=== PATIENT | female | born 1985 | race Caucasian/White ===

== ENCOUNTER 2017-04-25 16:09 | Outpatient (CLI) | payer OTHER ==
[2017-04-25 19:38] LABS: HCT - HEMATOCRIT 36.1 % (37.0-47.0); HGB - HEMOGLOBIN 12.7 g/dL (12.0-16.0); MEAN CORPUSCULAR HEMOGLOBIN 34.2 pg (27.0-31.0); MEAN CORPUSCULAR HGB CONC 35.2 g/dL (32.0-36.0); MEAN CORPUSCULAR VOLUME 97.3 fL (81.0-99.0); MEAN PLATELET VOLUME 8.9 fL (7.9-10.8); RED BLOOD COUNT 3.71 10^6/uL (4.20-5.40); RED CELL DISTRIBUTION WIDTH 13.5 % (12.0-15.0); WHITE BLOOD COUNT 6.8 x10^3/uL (4.8-10.8)
== END 2017-04-25 16:10 | disposition home or self-care (01) ==
LOC: LAB.N 16:09
PROVIDERS: ATTEND Registered Nurse
DX: Z36 Encounter for antenatal screening of mother (principal)
CPT/HCPCS: 36415; 82950; 86850; 87086

== ENCOUNTER 2017-07-04 11:15 | Outpatient (CLI) | payer OTHER | END 2017-07-04 11:16 | disposition home or self-care (01) | LOC: LAB.R 11:15 | PROVIDERS: ATTEND Registered Nurse | DX: Z34.83 Encounter for supervision of other normal pregnancy, third trimester (principal) | CPT/HCPCS: 87077; 87081 ==

== ENCOUNTER 2017-07-07 03:20 | Observation (INO) | payer OTHER ==
[2017-07-07] MEDS ORDERED: MORPHINE 10 MG/ML VIAL IM ONE (04:11)
[2017-07-07] MEDS ORDERED: PROMETHAZINE INJ 25 MG in SODIUM CHLORIDE 0.9% 50 ML IV PRN (04:23)
[2017-07-07] MEDS ORDERED: SODIUM CHLORIDE FLUSH 0.9% 10 ML SYRINGE IVP PRN (04:23)
[2017-07-07] MEDS ORDERED: LACTATED RINGERS 1,000 ML IV ONE ×3 (04:23→12:58)
[2017-07-07] MEDS ORDERED: SODIUM CHLORIDE FLUSH 0.9% 10 ML SYRINGE IVP ONE (04:31)
--- NOTE | 2017-07-07 04:31 | HISTORY & PHYSICAL EXAMINATION ---
Admit History - Instructions [place]: -Left hand click circles element as positive or present. -Right hand click slashes element as negative or not present. - Visit Reason Visit Reason: Contractions - : 2 Parity: 1 Premature: 0 Ectopic: 0 : 0 Care: positive: FEMI MURPHY-Laura (transfer of care @ 25 weeks' gestation for CNM care) Risk/History: positive: None Complications This : positive: Other (GBS positive on rectal- vaginal screening @ 36 weeks; Rh negative, received Rhogam @ 28 weeks' gestation , no antepartum bleeding) Smoking Status: Never smoker - Mother's Labs Mother's Blood Type: positive: O Mother's RH: positive: Negative GBS: positive: Group B Strep Positive Rubella Status: positive: Immune - Other Maternal History Other Maternal History: History of inpatient admission for treatment of anorexia; history of depression & anxiety; currently stable w/o medication Meds/Allgy - Home Medications Home Medications: Ambulatory Orders Medication Instructions Recorded Confirmed Pnv No.122/Iron/Folic Acid 1 tab PO DAILY 07/07/17 07/07/17 [ Multi Tablet] - Allergies Allergies/Adverse Reactions: Allergies Allergy/AdvReac Type Severity Reaction Status Date / Time No Known Drug Allergies Allergy Verified 07/07/17 04:28 Physical - Abdominal Exam Vital Signs: Temp Pulse Resp BP Pulse Ox 36.7 C 64 16 124/81 H 99 07/07/17 03:40 07/07/17 03:40 07/07/17 03:40 07/07/17 03:40 07/07/17 03:40 Contraction Frequency (min/apart): 5-7 Contraction Intensity: positive: Mild to moderate Uterine Resting Tone: positive: Soft - Monitoring Heart Rate Baseline: 140 Strip Review: positive: Category I - Presentation Presentation: positive: Vertex - Vaginal Exam Membranes: positive: Membranes intact Dilation (in cm): 2 Effacement (%): 75 Station: positive: -1 Cervical Position: positive: Midposition (medium consistency) - Speculum Exam Speculum Exam Performed: positive: No - Other Notes Labor Progress Note/Additional Text: Monserrat presents w/ a complaint of onset of uterine contractions around 1800 2016. She reports that her contractions were initially very mild & that they were infrequent. When she went to bed, she found she was unable to sleep because of discomfort she was having in her lower back w/ some of the contractions. She called for instruction @ 0100. She then took a bath w/ great relief over the course of an hour but called again at 0215, reporting that she was still having discomfort. At that point, she thought she might be able to rest, but she found that she could not. She called again around 0330, requesting to be evaluated because of ongoing intermittent back discomfort. She denies LOF/VB. She reports good FM. She presented to [facility] in good spirits, having driven herself to the hospital for evaluation. She is having uterine contractions q5-7 minutes that palpate mild to moderate intensity. She reports that she had difficulty drinking consistently throughout the day & that she has limited her oral intake generally because she has been nauseated & has been afraid of vomiting. Her cervical status is unchanged from her exam on 2016. ROS: GEN: +fatigue, no fever, no chills HEENT: mild [place], no vision changes CARDIAC: no CP, no palpitations LUNGS: no dyspnea, no wheezing, no cough GI: +nausea, no vomiting, no diarrhea : +urinary frequency, no dysuria, no change in vaginal d/c OB: +FM, +uterine contractions, no LOF, no vaginal bleeding MS: +lumbar back pain, intermittent, 6/10, FROM, no joint pain NEURO: no numbness, weakness, tingling SKIN: no pruritus, no lesion PSYCH: +anxiety, no depression PE: GEN: AAOx3, NAD WA gravid female HEENT: grossly normocephalic, atraumatic, w/o corrective lenses CARDIAC: RRR nls1s2, no murmur LUNGS: CTA b/l t/o ABD: gravid, NT, lie longitudinal, presentation cephalic, position LOP, EFW 7.5# EFM: BL 140bpm +accels, no decels, mod variability TOCO: UCs q5-7 min x 80 seconds, palpably mild to moderate SVE: 2/75/-1, midposition, medium consistency, per RN MS: FROM t/o, no erythema, no edema, negative Oralia's b/l NEURO: no focal deficit SKIN: no lesion PSYCH: mild anxiety Plan for Labor - Plan For Labor : therapeutic rest Plan for Labor: Monserrat presents w/ occiput posterior positioning & prodromal uterine contractions and admits that she is likely dehydrated secondary to limited intake as a result of nausea t/o the day. She is uncomfortable & has not slept >24 hours. She has had no cervical change despite uterine contractions that have been bothersome to her for 10 hours. She has an intact bag of water & is GBS positive w/o allergies. Plan: 1. reviewed clinical scenario & probable etiology of uterine contractions & lumbar discomfort 2. reviewed all options for management 3. PARQ therapeutic rest, which pt desires, will administer 10mg morphine sulfate IM x1 4. promethazine 25mg IVPB for antiemetic therapy 5. Insert IV & administer 1L bolus of LR, followed by maintenance fluids @ 125mL /hr 6. regular diet as pt desires 7. reviewed optimal positioning, reviewed physiology of normal labor & pathophysiology of prodromal labor 8. encouraged maternal rest 9. will admit to observation for therapeutic rest & reassess when pt awakens 10. Reviewed plan of care with patient & RN @ bedside; both in agreement, without concerns
[2017-07-07] MEDS ORDERED: LACTATED RINGERS 1,000 ML IV SCH (05:00)
[2017-07-07] MEDS ORDERED: PROMETHAZINE 25 MG/1 ML VIAL ONE (06:03)
[2017-07-07] MEDS ORDERED: SODIUM CHLORIDE 0.9% MINIBAG 100 ML IV ONE (06:03)
[2017-07-07 06:35] VITALS: BP 122/78
--- NOTE | 2017-07-07 13:01 | PROVIDER PROGRESS NOTE ---
Subjective - Prog Note Date Prog Note Date: 07/07/17 Prog Note Time: 13:00 - Subjective Pt reports feeling: Improved Subjective: Monserrat still c/o intermittent back pain. States that she was able to sleep for 6+ hours & tolerated her meal, after which she had some mild nausea but no emesis. She reports that she has discomfort w/ her uterine contractions but that it is improved vs. earlier today. She feels well-rested. Her plans to come and get her. Current Medications - Current Medications Current Medications: s/p 25mg promethazine IVPB s/p 1L LR IV s/p10mg morphine sulfate IM Objective - Vital Signs/Intake & Output Vital Signs: Vital Signs x48h Pulse Resp BP Pulse Ox 07/07/17 06:00 54 L 16 122/78 98 Intake & Output: urinated x1 s/p bolus of 1L & 750mL infusion - Objective General Appearance: positive: No acute distress, Alert Eyes Bilateral: positive: Normal inspection, PERRL, EOMI ENT: positive: ENT inspection nml Respiratory: positive: Chest non-tender, No respiratory distress, Breath sounds nml Cardiovascular: positive: Regular rate & rhythm, No murmur Abdomen: positive: Non-tender, Other (gravid) Back: positive: Nml inspection Skin: positive: Color nml, No rash, Warm, Dry Extremities: positive: Non-tender, Full ROM, No pedal edema. negative: Calf tenderness, Oralia's sign/cords Neurologic/Psychiatric: positive: Oriented x3, CN's nml (2-12), Motor nml, Sensation nml, Mood/affect nml Comments/Other: EFM: BL 140bpm + accels, no decels, mod variability TOCO: UCs q7-10 min x60 seconds, palpably mild SVE: 2/75/-1, medium consistency, mid-position, position AIDAN Assessment/Plan - Problem List (1) Threatened labor, antepartum Impression: Prodromal labor @ 37 weeks 1 day GBS positive FHTs cat I Decreased contraction activity s/p hydration & therapeutic rest Improved pain s/p hydration & therapeutic rest Decreased nausea 1. Reviewed prodromal vs. active labor & s/sx labor 2. reviewed management of prodromal sx & encouraged increased rest as able: hydroxyzine pamoate 100mg po QHS PRN insomnia secondary to non-progressive uterine contractions, PARQ held, Rx will be e-rx'ed to [facility] in [place] 3. reviewed possible etiologies of nausea in 3rd trimester of , including GERD & management; promethazine 25mg po q 6 hrs PRN nausea, PARQ held & Rx will be e-rx'ed to [facility] in [place] 4. Bolus another liter of LR prior to d/c, encouraged increased po fluid intake 5. Reviewed optimal positioning, maternal positioning/activity 6. Reviewed emergency contact information, warning s/sx, labor s/sx, [facility] 7. d/c to home in care of ; pt to f/u for RTPN 07/11 as scheduled, earlier PRN--articulates full understanding & has no further questions/concerns.
== END 2017-07-07 14:57 | disposition home or self-care (01) ==
LOC: WFO 03:20 → FBP 03:20 → WFO 04:20 → FBP 04:25
PROVIDERS: ADMIT Registered Nurse; ATTEND Registered Nurse
DX: O47.1 False labor at or after 37 completed weeks of gestation (principal); Z3A.37 37 weeks gestation of pregnancy
CPT/HCPCS: 96372; 96374; 99212; G0378; J7120

== ENCOUNTER 2017-07-09 08:06 | Outpatient (CLI) | payer OTHER ==
[2017-07-09 11:17] VITALS: BP 115/71
== END 2017-07-09 11:25 | disposition home or self-care (01) ==
LOC: WFO 08:06 → FBP 08:08 → WFO 11:25
PROVIDERS: ATTEND Registered Nurse
DX: Z34.83 Encounter for supervision of other normal pregnancy, third trimester (principal); Z3A.37 37 weeks gestation of pregnancy
CPT/HCPCS: 99213

== ENCOUNTER 2020-08-30 09:06 | Emergency (ER) | payer OTHER ==
[2020-08-30] MEDS ORDERED: DEXAMETHASONE 10 MG/ML VIAL PO STA (09:43)
[2020-08-30] MEDS ORDERED: CHERRY SYRUP 10 ML UDC PO ONE (09:43)
[2020-08-30] MEDS ORDERED: KETOROLAC 60 MG/2 ML VIAL IM STA (09:43)
--- NOTE | 2020-08-30 09:48 | ED Physician Documentation ---
PD HPI BACK PAIN - Stated complaint Stated Complaint: BACK PX - Chief complaint Chief Complaint: Back Pain - History obtained from History obtained from: Patient - History of Present Illness Timing - onset: Enter time (0500), Today Timing - duration: Hours Timing - details: Abrupt onset, Still present Location: Lower Quality: Pain, Spasm, Sharp, Similar to prior episodes Associated symptoms: No: Fever, Weakness, Numbness, Incontinent of urine, Unable to urinate, Hematuria, Incontinent of stool Improves with: Rest Worsened by: Movement, Lifting, Twisting, Palpation Contributing factors: Other (deadlifting this morning) Similar symptoms before: Diagnosis (lumbar disc herniation) Recently seen: Not recently seen - Additional information Additional information: Previous well 35-year-old mother was up this morning early to do her weightlifting before her kids got out of bed this morning and about 5:00 this morning she tried to lift 210 pounds an increase in 5 pounds from her prior when she felt a sudden snap in her back and it brought her to her knees. She has had 2 other times where this is brought her to her knees this morning after this initially occurred and she is having a burning across the middle of her back. She denies any numbness or tingling she denies any difficulty with her bowel or bladder she denies any weakness. She has has had something similar to this happened previously with a ruptured disc. She had MRI done several years ago. She has not had problem in the intervening time. Review of Systems Constitutional: denies: Fever Eyes: denies: Decreased vision Ears: denies: Ear pain Nose: denies: Congestion Throat: denies: Sore throat Cardiac: denies: Chest pain / pressure, Palpitations Respiratory: denies: Dyspnea, Cough GI: denies: Abdominal Pain, Nausea, Vomiting : denies: Dysuria, Frequency Skin: denies: Rash Musculoskeletal: reports: Back pain. denies: Neck pain, Extremity pain Neurologic: denies: Generalized weakness, Focal weakness, Numbness PD PAST MEDICAL HISTORY - Past Medical History Past Medical History: Yes Cardiovascular: None Respiratory: None Neuro: None Endocrine/Autoimmune: None GI: None [employer]: None : None HEENT: None Psych: None Musculoskeletal: Chronic back pain Derm: None - Present Medications Home Medications: Ambulatory Orders Medication Instructions Recorded Confirmed No122/Iron/Folic Acid 1 tab PO DAILY 07/07/17 07/07/17 [ Multi Tablet] Cyclobenzaprine [Flexeril] 10 mg PO TID PRN #20 tablet 08/30/20 HYDROcod/ACETAM 5/325 [[place] 5/325] 1 - 2 ea PO Q6H PRN #15 tablet 08/30/20 - Allergies Allergies/Adverse Reactions: Allergies Allergy/AdvReac Type Severity Reaction Status Date / Time No Known Drug Allergies Allergy Verified 08/30/20 09:18 - Social History Does the pt smoke?: No Smoking Status: Never smoker Does the pt drink ETOH?: Yes Does the pt have substance abuse?: No - Immunizations Immunizations are current?: Yes - POLST Patient has POLST: No PD ED PE NORMAL - Vitals Vital signs reviewed: Yes (hypertensive Mild) - General General: Alert and oriented X 3, No acute distress, Well developed/nourished - HEENT HEENT: Atraumatic, PERRL, EOMI - Neck Neck: Supple, no meningeal sign - Cardiac Cardiac: RRR, No murmur - Respiratory Respiratory: No respiratory distress, Clear bilaterally - Abdomen Abdomen: Soft, Non tender - Back Back: No CVA TTP, No spinal TTP, Other (There is tenderness to the paraspinous muscles of the mid lumbar spine more to the left. ) - Derm Derm: Normal color, Warm and dry, No rash - Extremities Extremities: No deformity, No edema - Neuro Neuro: Alert and oriented X 3, reed worker 2-12 intact, No motor deficit, No sensory deficit, Normal speech Eye Opening: Spontaneous Motor: Obeys Commands Verbal: Oriented GCS Score: 15 - Psych Psych: Normal mood, Normal affect Results - Vitals Vitals: Vital Signs - 24 hr 08/30/20 09:12 Temperature 36.6 C Heart Rate 51 L Respiratory 16 Rate Blood Pressure 132/68 H O2 Saturation 99 Oxygen O2 Source Room air PD MEDICAL DECISION MAKING - ED course Complexity details: reviewed old records, considered differential, d/w patient ED course: 35-year-old female with a history of lumbar disc disease has a lifting injury with compression forces and signs and symptoms of disc herniation. She has mostly pain associated with this she has not had numbness and she is administered dexamethasone 10 mg orally 60 mg of Toradol IM and we will place her on a short course of pain medication a muscle relaxant. Departure - Departure Disposition: 01 Home, Self Care Clinical Impression: Acute lumbar myofascial strain Qualifiers: Encounter type: initial encounter Qualified Code(s): S39.012A - Strain of muscle, fascia and tendon of lower back, initial encounter Condition: Stable Instructions: ED Sprain Strain Lumbar Follow-Up: RIZWAN ALVA [Primary Care Provider] - Prescriptions: Cyclobenzaprine [Flexeril] 10 mg PO TID PRN #20 tablet PRN Reason: Spasms HYDROcod/ACETAM 5/325 [[place] 5/325] 1 - 2 ea PO Q6H PRN #15 tablet PRN Reason: Pain
[2020-08-30 10:02] VITALS: BP 111/55
== END 2020-08-30 10:17 | disposition home or self-care (01) ==
LOC: ED 09:06
DX: S39.012A Strain of muscle, fascia and tendon of lower back, initial encounter (principal); X50.0XXA Overexertion from strenuous movement or load, initial encounter; Y93.B9 Activity, other involving muscle strengthening exercises
CPT/HCPCS: 96372; 99283; 99284; A9270

== ENCOUNTER 2021-01-29 09:09 | Outpatient (CLI) | payer OTHER ==
[2021-01-29] MEDS ORDERED: IOVERSOL 320 100 ML VIAL IVP ONE ×2 (09:21→09:54)
--- NOTE | 2021-02-01 16:31 | CT Report ---
PROCEDURE: IVP INDICATIONS: UNSPECIFIED HYDRONEPHROSIS CONTRAST: IV CONTRAST: Optiray 320 ml: 140 PO CONTRAST: *NO PO CONTRAST TECHNIQUE: After the administration of intravenous contrast, 5 mm thick sections acquired from the diaphragms to the symphysis. 5 mm thick coronal and sagittal reformats were acquired. For radiation dose reducti on, the following was used: automated exposure control, adjustment of mA and/or kV according to lela ent size. COMPARISON: Renal ultrasound 07/10/2017 during and 07/12/2017 reviewed. There was bilateral hydronephrosis, right greater than left, during the initial ultrasound had been resolution of the si gnificant hydronephrosis pattern 07/12/2017. The current CT scanning shows recurrent hydronephrosis bi laterally. FINDINGS: Image quality: Excellent. Lung bases: Lung bases are clear. Heart size is normal. Urinary system: Both kidneys are normal in size and enhancement but again both kidneys show hydronep hrosis which is somewhat greater on the right than the left.. No stone is found within the urinary t ract on precontrast imaging. Contrast-filled renal calyces are moderately hydronephrotic in morpholog y. Contrast filled portions of both ureters are asymmetric in caliber, larger and contrast filled on the left but not on the right. The renal pelvis bilaterally is moderately distended and contrast-saqib led. Bladder wall thickness is normal. Solid organs: Liver and spleen are normal in size and enhancement. Gallbladder appears normal where well seen Biliary system is non dilated. Pancreas enhances normally. No adrenal nodules. Peritoneum and bowel: Bowel loops demonstrate normal wall thickness and caliber. No free fluid or a ir. Nodes and vessels: No retroperitoneal or mesenteric adenopathy by size criteria. Aorta and inferior vena cava are normal in size. Abdominal wall: No ventral hernias. Pelvis: No pathologic free pelvic fluid. No inguinal hernias or adenopathy. There is a slight amou nt of gas within the anterior bladder lumen, etiology uncertain. Evidence of a fistulous communicatio n to adjacent bowel structures is not seen. Bones: No suspicious bony lesions. No vertebral body compression fractures. IMPRESSION: 1. As discussed above there are 2 comparison ultrasound studies, one from 07/10/2017 and apparently d uring . There was right greater than left hydronephrosis. The second is from 07/12/2017 and h ydronephrosis was virtually resolved at that time. Please correlate for whether this second study was . 2. The current study shows bilateral hydronephrosis, right greater than left, without identifiable et iology. The left ureter is mildly dilated and contains contrast. The right ureter cannot be located a nd is not dilated. This may imply some degree of ureteropelvic junction stenosis on the right. 3. There is no identified mass or calculus involving either ureter but the amount of fat within the r etroperitoneum and mesentery of this patient is low. The exact etiology of recurrent hydronephrosis b ilaterally is not found. Urology consultation is recommended. Reviewed by: Yusuf Fagan MD on 01/29/2021 3:46 PM PDT Approved by: Yusuf Fagan MD on 01/29/2021 3:46 PM PDT Station ID: [id number]
== END 2021-01-29 09:10 | disposition home or self-care (01) ==
LOC: DI 09:09
PROVIDERS: ATTEND Physician Assistant Surgical
DX: N13.30 Unspecified hydronephrosis (principal)
CPT/HCPCS: 74178; Q9967

== ENCOUNTER 2021-03-26 08:59 | Outpatient (CLI) | payer OTHER ==
[2021-03-26] MEDS ORDERED: FUROSEMIDE 40 MG/4 ML VIAL IVP ONE (13:00)
--- NOTE | 2021-03-26 18:28 | Nuclear Medicine Report ---
PROCEDURE: Renal Flow + Function w/Rx INDICATIONS: HYDRONEPHOROSIS RADIOPHARMACEUTICAL: 5.3 mCi Tc-99m MAG3 IV and 40 mg furosemide IV. TECHNIQUE: The patient was hydrated orally before the examination was begun. After intravenous administration o f Tc-99m MAG3, posterior abdominal radionuclide angiogram and sequential (1 minute each frame) renal images were obtained. A time-activity curve for each kidney was generated and analyzed. To evaluate f or obstruction, the patient was given 40 mg furosemide via slow intravenous injec?tion after the star t of the examination. Sequential images were obtained for up to an additional 20 minutes. COMPARISON: CT IVP, 01/29/2021. Ultrasound retroperitoneum, 07/12/2017. FINDINGS: Perfusion: There is normal vascular flow to both kidneys. Morphology: Both kidneys are normal in size and shape. There are dilated collecting systems bilatera lly, right greater than left. The ureters and bladder fill with tracer, and appear normal. Function: Both kidneys demonstrate normal cortical tracer uptake, with [id number] activity ranging from 3 to 5 minutes. The right kidney contributes 47.9% of total renal function. The left kidney c ontributes 52.1% of total renal function. Lasix stimulation: After diuretic administration, there is prompt clearance of tracer activity from the renal collecting systems in both kidneys. The half-time of emptying of tracer activity from the right pelvicaliceal system is 13 minutes. The half-time of emptying from the left pelvicaliceal syst em is 15 minutes. Normal emptying half-times are less than 10 minutes; borderline ranges are from 10 to 20 minutes. IMPRESSION: 1. Hydronephrosis bilaterally. 2. Right kidney contributes 47.9% of total renal function; left kidney contributes 52.1% of total dane al function. 3. Borderline delayed clearance of tracer activity from the renal pelvicalyceal systems bilaterally. Reviewed by: Bj Duvall MD on 03/26/2021 6:26 PM PDT Approved by: Bj Duvall MD on 03/26/2021 6:26 PM PDT Station ID: [id number]
== END 2021-03-26 09:00 | disposition home or self-care (01) ==
LOC: DI 08:59
PROVIDERS: ATTEND Physician Assistant Surgical
DX: N13.30 Unspecified hydronephrosis (principal)
CPT/HCPCS: 78708

== ENCOUNTER 2021-08-19 08:00 | Outpatient (CLI) | payer OTHER | END 2021-08-19 23:59 | LOC: LAB 08:00 | PROVIDERS: ATTEND Physician Assistant Medical | DX: U07.1 COVID-19 (principal) ==

== ENCOUNTER 2021-11-19 08:00 | Outpatient (CLI) | payer OTHER | END 2021-11-19 23:59 | disposition home or self-care (01) | LOC: LAB.N 08:00 | PROVIDERS: ATTEND Family Medicine | DX: R07.0 Pain in throat (principal); Z20.822 Contact with and (suspected) exposure to COVID-19 ==